=== PATIENT | female | born 1950 | race Caucasian/White ===

== ENCOUNTER 2017-04-08 14:00 | Emergency (ER) | payer BC ==
[~2017-04-08] VITALS: Ht 165.1 cm; Wt 79.0 kg
[~2017-04-08 14:00] MED LIST: ASPI-535 PO; ATOR20TA17 PO; CLON-379 PO; GLIP-95 PO; HYDR25TA6 PO; IBUP-1542 PO; METF500T4 PO; QUIN20TA23 PO
[2017-04-08 14:06] VITALS: Ht 165.1 cm; Wt 79.0 kg
[2017-04-08] MEDS ORDERED: traMADol 50 MG TAB PO ONE (15:00)
--- NOTE | 2017-04-08 15:28 | RADRPT ---
PROCEDURE: XR RIGHT SHOULDER. CLINICAL INDICATION: Right shoulder pain TECHNIQUE: 3 views of the right shoulder were performed. COMPARISON: None. FINDINGS: There is no evidence of acute fracture dislocation of the right shoulder. Bony mineralization and al ignment are unremarkable. Joint spaces are preserved. The acromioclavicular joint is intact. No sign ificant soft tissue swelling. IMPRESSION: 1. No evidence of acute fracture or dislocation of the right shoulder. RPTAT: AAPP Physician Mary Date Time Electronically viewed and signed by Physician Mary on 04/08/2017 15:27 LAURIE/
--- NOTE | 2017-04-08 15:28 | RADRPT ---
PROCEDURE: RIGHT HUMERUS X-RAY CLINICAL INDICATION: Pain TECHNIQUE: 3 views of the right humerus were obtained. COMPARISON: None FINDINGS: No evidence of acute fracture or dislocation of the right humerus. Joint spaces are preserved. Bone mineralization and alignment are unremarkable. There is no evidence of significant soft tissue swell ing. IMPRESSION: 1. No evidence of acute fracture or dislocation of the right humerus. RPTAT: AAPP Physician Mary Date Time Electronically viewed and signed by Michael Salas Physician on 04/08/2017 15:28 LAURIE/
[2017-04-08] MEDS ORDERED: TRAM50TA2 PO (15:31)
--- NOTE | 2017-04-08 15:40 | ERD ---
ER Documentation Chief Complaint Chief Complaint right shoulder pain x 5 days, hx artheritis HPI 66-year-old female comes in with right anterior shoulder pain going down her right humerus for 5 days. The patient's pain is reproducible when she lifts her shoulder, and is aching diffuse and worse in movement. She denies any traumas, fevers or chills. She denies abdominal pain, chest pain, shortness breath. ROS All systems reviewed and are negative except as per history of present illness. Medications Home Meds Active Scripts Tramadol HCl (Tramadol HCl) 50 Mg Tablet, 50 MG PO Q4 Y for PAIN, #15 TAB Prov:CITLALY CASTORENA PA-C 04/08/17 Reported Medications Metformin Hcl* (Metformin Hcl*) 500 Mg Tablet, 500 MG PO BID, TAB 02/27/14 Clonidine Hcl* (Clonidine Hcl*) 0.1 Mg Tab, 0.1 MG PO BID, TAB 02/27/14 Ibuprofen* (Ibuprofen*) 600 Mg Tablet, 600 MG PO DAILY, TAB 02/27/14 Glipizide* (Glipizide*) 10 Mg Tablet, 10 MG PO BID AC MEALS, TAB 02/27/14 Hydrochlorothiazide* (Hydrochlorothiazide*) 25 Mg Tab, 25 MG PO AM, TAB 07/22/13 Quinapril Hcl (Quinapril Hcl) 20 Mg Tablet, 20 MG PO DAILY 07/22/13 Atorvastatin (Lipitor) 20 Mg Tablet, 20 MG PO HS 03/30/12 Aspirin Ec (Aspir 81) 81 Mg Tablet.dr, 81 MG PO DAILY 03/30/12 Allergies Allergies: Coded Allergies: No Known Drug Allergies (Verified Allergy, Mild, 02/27/14) PMhx/Soc History of Surgery: No Anesthesia Reaction: No Hx Neurological Disorder: No Hx Respiratory Disorders: No Hx Cardiac Disorders: Yes (HTN) Hx Psychiatric Problems: No Hx Miscellaneous Medical Probl: Yes (DM, CHOLESTEROL) Hx Alcohol Use: No Hx Substance Use: No Hx Tobacco Use: No Physical Exam Vitals Vital Signs Date Time Temp Pulse Resp B/P Pulse Ox O2 Delivery O2 Flow Rate FiO2 04/08/17 14:06 98.1 74 20 121/74 99 Physical Exam General: Well-developed, well-nourished. The patient appears in no acute distress. HEENT: Head is normocephalic, atraumatic. No scleral icterus. Neck: Supple. Nontender. Lungs: Clear to auscultation. Normal air movement. Heart: Regular rate and rhythm. S1 and S2 are normal. No murmurs, gallops, or rubs. Abdomen: Soft, nontender, nondistended. Bowel sounds are normoactive. Extremities: No bony deformities of the right shoulder, no swelling, compartments are soft. There is no skin changes, no erythema, no warmth. The patient's right shoulder pain is reproduced with abduction. Radial pulses 2+ bilaterally. Neurologic: Alert and oriented 3. No focal deficits. Skin: Normal turgor. No rash or lesions. Results 24 hrs Current Medications Medications (Trade) Dose Ordered Sig/Rosmery Route PRN Reason Start Time Stop Time Status Last Admin Dose Admin Tramadol HCl (Ultram) 50 mg ONCE ONCE PO 04/08/17 15:00 04/08/17 15:01 DC 04/08/17 15:12 DIAGNOSTIC IMAGING REPORT Patient: SRINIVASAN MCMANUS : 04/21/2012 Age: 4Y 11M Sex: F MR #: [id number] DOS: 04/08/17 1435 Ordering MD: CITLALY CASTORENA PA-C Location: [facility] Room/Bed: PROCEDURE: XR Chest. CLINICAL INDICATION: Fever TECHNIQUE: AP Portable chest. COMPARISON: 06/09/2014 chest x-ray FINDINGS: The soft tissues and bones are normal. Low lung volumes are again noted. Bilateral interstitial crowding is present. No focal infiltrates, masses or effusions are present. The mediastinum and the heart size are normal. No pneumothorax is present. IMPRESSION: 1. No radiographic evidence for acute cardiopulmonary disease RPTAT: HDC .Deja Sr MD, Date Time Electronically viewed and signed by .Deja Sr MD, on 04/08/2017 15: 14 .C/ CC: CITLALY CASTORENA PA-C DIAGNOSTIC IMAGING REPORT Patient: FRANCOIS PRICE : 1950 Age: 66 Sex: F [id number]: 04/08/17 1452 Ordering MD: CITLALY CASTORENA PA-C Location: [facility] Room/Bed: PROCEDURE: XR RIGHT SHOULDER. CLINICAL INDICATION: Right shoulder pain TECHNIQUE: 3 views of the right shoulder were performed. COMPARISON: None. FINDINGS: There is no evidence of acute fracture dislocation of the right shoulder. Bony mineralization and alignment are unremarkable. Joint spaces are preserved. The acromioclavicular joint is intact. No significant soft tissue swelling. IMPRESSION: 1. No evidence of acute fracture or dislocation of the right shoulder. RPTAT: AAPP Physician Mary Date Time Electronically viewed and signed by Michael Salas Physician on 04/08/2017 15:27 JL/ Procedures/MDM 66 year old female comes in with right shoulder pain and right humeral pain, x- rays of the right shoulder and humerus are normal today, no acute findings. I suspect patient has tendinitis of the shoulder. No signs of septic arthritis, dislocation, fracture, DVT, cellulitis, abscess, limb threatening process. Patient's blood pressure was elevated (>120/80) but appears stable without evidence of hypertension emergency or urgency. The patient was counseled about the risks of hypertension and urged to pursue outpatient monitoring and therapy within a week with their primary care physician. Departure Diagnosis: Primary Impression: Shoulder pain Condition: Good Patient Instructions: Shoulder Problems CITLALY CASTORENA PA-C Apr 08, 2017 15:40
== END 2017-04-08 15:40 | disposition home or self-care (01) ==
LOC: FTE 14:00
DX: M25.511 Pain in right shoulder (principal); E11.9 Type 2 diabetes mellitus without complications; I10 Essential (primary) hypertension; Z79.82 Long term (current) use of aspirin; Z79.84 Long term (current) use of oral hypoglycemic drugs
CPT/HCPCS: 73030; 73060; 99283; Z7610

== ENCOUNTER 2018-01-30 13:59 | Emergency (ER) | END 2018-01-30 15:38 | disposition home or self-care (01) ==

== ENCOUNTER 2018-12-28 16:06 | Emergency (ER) | payer BC ==
[~2018-12-28] VITALS: Ht 157.5 cm; Wt 71.8 kg
[~2018-12-28 16:06] MED LIST changes: -GLIP-95 PO; +GLIP10TA14 PO; +IBUP-1561 PO; +METF500T24 PO; -METF500T4 PO; +TRAM50TA2 PO
[2018-12-28 16:11] VITALS: BP 142/74; PULSE 89; RESP 20; Ht 157.5 cm; Wt 71.8 kg
[2018-12-28] MEDS ORDERED: traMADol 50 MG TAB PO ONE (17:00)
== END 2018-12-28 18:32 | disposition home or self-care (01) ==
LOC: FTE 16:06
DX: R51 Headache (principal); I10 Essential (primary) hypertension; E11.9 Type 2 diabetes mellitus without complications; Z79.82 Long term (current) use of aspirin; Z79.84 Long term (current) use of oral hypoglycemic drugs
CPT/HCPCS: 70450; 71045; 93005; 99285; Z7610